=== PATIENT | female | born 1985 | race Caucasian/White ===

== ENCOUNTER 2024-08-05 18:24 | Emergency (ER) | payer OTHER, SELFPAY ==
--- NOTE | 2024-08-05 18:45 | ER ---
Nurse's Notes [facility] Name: Chen Sanchez Age: 39 yrs Sex: Female : 1985 Arrival Date: 08/05/2024 Time: 18:24 Bed IW2 Private MD: Diagnosis: Cough;Other acute sinusitis Presentation: 08/05 18:36 Chief complaint: Patient states: cough, for about 2 weeks. Mostly non-productive. No ko1 fever, no other symptoms. Coronavirus screen: At this time, the client does not indicate any symptoms associated with coronavirus-19. Ebola Screen: No symptoms or risks identified at this time. Initial Sepsis Screen: Does the patient meet any 2 criteria? No. Patient's initial sepsis screen is negative. Does the patient have a suspected source of infection? No. Patient's initial sepsis screen is negative. Risk Assessment: Do you want to hurt yourself or someone else? Patient reports no desire to harm self or others. Onset of symptoms is unknown. 18:36 Method Of Arrival: Ambulatory ko1 18:36 Acuity: JINA 4 ko1 Triage Assessment: 18:40 General: Appears in no apparent distress. Behavior is calm, cooperative, appropriate ko1 for age. Pain: Denies pain. 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 - Infectious Disease History:: Denies. - Social history:: Smoking status: Patient denies any tobacco usage or history of. Screenin:40 [facility] ED Fall Risk Assessment (Adult) History of falling in the last 3 months, ko1 including since admission No falls in past 3 months (0 pts) Confusion or Disorientation No (0 pts) Intoxicated or Sedated No (0 pts) Impaired Gait No (0 pts) Mobility Assist Device Used No (0 pt) Altered Elimination No (0 pt) Score/Fall Risk Level 0 - 2 = Low Risk Oriented to surroundings, Maintained a safe environment, Educated pt \T\ family on fall prevention, incl call for assistance when getting out of bed, Assessed \T\ reinforced patient's understanding of fall precautions, Hourly rounding (assess needs \T\ fall precautionary measures) done. Abuse screen: Denies threats or abuse. Denies injuries from another. Nutritional screening: No deficits noted. Tuberculosis screening: No symptoms or risk factors identified. Assessment: 18:40 Respiratory: Reports cough that is non-productive. ko1 Vital Signs: 18:36 BP 111 / 79; Pulse 90; Resp 16; Temp 97; Pulse Ox 100% ; ko1 18:59 BP 108 / 72; Pulse 84; Resp 16; Pulse Ox 99% ; ko1 ED Course: 18:26 Patient arrived in ED. ec2 18:26 Jaxson Nova MD is Attending Physician. ec2 18:40 Triage completed. ko1 18:40 Arm band placed on right wrist. Patient placed in waiting room, Patient notified of ko1 wait time. 18:40 Patient has correct armband on for positive identification. Provided Education on: meds.ko1 18:40 No provider procedures requiring assistance completed. Patient did not have IV access ko1 during this emergency room visit. 18:58 Wanda Montejo RN is Primary Nurse. ko1 Administered Medications: No medications were administered Medication: 18:40 VIS not applicable for this client. ko1 Outcome: 18:45 Discharge ordered by . ec2 18:59 Discharged to home ambulatory, ko1 18:59 Condition: stable 18:59 Discharge instructions given to patient, Instructed on discharge instructions, follow up and referral plans. medication usage, Demonstrated understanding of instructions, follow-up care, medications, Prescriptions given X 3, 19:00 Patient left the ED. ko1 Signatures: Wanda Montejo RN RN ko1 Jaxson Nova MD MD ec2 Corrections: (The following items were deleted from the chart) 18:40 18:40 PMHx: Seizures; ko1 ko1
--- NOTE | 2024-08-05 18:45 | EDPHYS ---
Physician Documentation [facility] Name: Chen Sanchez Age: 39 yrs Sex: Female : 1985 Arrival Date: 08/05/2024 Time: 18:24 Bed IW2 Private MD: ED Physician Jaxson Nova HPI: 08/05 18:49 This 39 yrs old Female presents to ER via Ambulatory with complaints of cough.ec2 18:49 Patient arrives today for evaluation of cough symptoms as well as drainage ongoing for ec2 2 weeks. Reports minimal improvement in symptoms. Patient reports no nausea or vomiting, no diarrhea symptoms.. 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 - Infectious Disease History:: Denies. - Social history:: Smoking status: Patient denies any tobacco usage or history of. ROS: 18:49 Constitutional: as per hpi ec2 Exam: 18:49 Constitutional: GEN: NAD Head: atraumatic Eyes: EOMI Ears: External ears are ec2 normal. CV: regular rate LUNGS: no respiratory distress, no wheezes, no rales, no focal lung deficits ABD: non-distended SKIN: no evidence of rashes MSK: no evidence of trauma Vital Signs: 18:36 BP 111 / 79; Pulse 90; Resp 16; Temp 97; Pulse Ox 100% ; ko1 18:59 BP 108 / 72; Pulse 84; Resp 16; Pulse Ox 99% ; ko1 MDM: 18:40 Medical Screening Exam initiated ec2 18:49 Data reviewed: vital signs. ED course: Patient arrives today for URI symptoms. ec2 Examination remarkable for well-appearing nontoxic hemodynamically stable individuals otherwise in no acute distress with a reassuring cardiopulmonary examination. Suspect possible viral infection, possible bacterial infection. Favor bacterial process given the duration of symptoms ongoing for 2 weeks. Will discharge home, starting antibiotics. Return precautions given . Administered Medications: No medications were administered Disposition Summary: 08/05/24 18:45 Discharge Ordered Notes: Location: Home ec2 Condition: Stable ec2 Diagnosis - Cough ec2 - Other acute sinusitis ec2 Followup: ec2 - With: Private Physician - When: - Reason: Re-evaluation by your physician Discharge Instructions: - Discharge Summary Sheet ko1 - Sinusitis, Adult ec2 Forms: - Work release form ko1 - Medication Reconciliation Form ec2 - Antibiotic Education ec2 - Prescription Opioid Use ec2 - Patient Portal Instructions ec2 - Leadership Thank You Letter ec2 Prescriptions: - Tessalon Perles 100 mg Oral Capsule - take 1 capsule ORAL route every 8 hours As needed; 15 capsule; Refills: 0, ec2 Product Selection Permitted - Zithromax Z-Anil 250 mg Oral Tablet - take 1 tablet ORAL route as directed for 5 days Day 1 - take two (2) tablets ec2 one time. Day 2, 3, 4 , 5 take one (1) tablet once daily.; 6 tablet; Refills: 0, Product Selection Permitted - Prednisone 20 mg Oral Tablet - take 2 tablets ORAL route once daily for 5 days; 10 tablet; Refills: 0, Product ec2 Selection Permitted Signatures: Wanda Montejo RN RN ko1 Jaxson Nova MD MD ec2 Corrections: (The following items were deleted from the chart) 18:40 18:40 PMHx: Seizures; ko1 ko1
[2024-08-05 19:31] VITALS: TEMP 97
[2024-08-05 19:32] VITALS: BP 108/72; O2SAT 99
== END 2024-08-05 19:00 | disposition home or self-care (01) ==
LOC: ER 18:24
DX: J01.80 Other acute sinusitis (principal)
CPT/HCPCS: 99283

== ENCOUNTER 2024-12-29 11:02 | Emergency (ER) | payer OTHER, SELFPAY ==
--- NOTE | 2024-12-29 12:08 | EDPHYS ---
Physician Documentation [facility] Name: Chen Sanchez Age: 39 yrs Sex: Female : 1985 Arrival Date: 12/29/2024 Time: 11:02 Bed IW4 Private MD: ED Physician Kennedy Browne HPI: 12/29 12:04 This 39 yrs old Female presents to ER via Ambulatory with complaints of Wound jeannette Check. 12:04 Patient presents to ED for recheck of: VULVAR. The affected area is on the pelvis. jeannette Previous treatment: UNK , [facility]. Progress: The patient reports NO ASSESSED PER PT. The patient has not experienced similar symptoms in the past. 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 - Infectious Disease History:: Denies. - Social history:: Smoking status: Patient denies any tobacco usage or history of. - Family history:: not pertinent. ROS: 12:04 Constitutional: Negative for fever, chills, and weight loss, Eyes: Negative for injury, jeannette pain, redness, and discharge, ENT: Negative for injury, pain, and discharge, Neck: Negative for injury, pain, and swelling, Cardiovascular: Negative for chest pain, palpitations, and edema, Respiratory: Negative for shortness of breath, cough, wheezing, and pleuritic chest pain, Abdomen/GI: Negative for abdominal pain, nausea, vomiting, diarrhea, and constipation, Back: Negative for injury and pain, MS/Extremity: Negative for injury and deformity, Skin: Negative for injury, rash, and discoloration, Neuro: Negative for headache, weakness, numbness, tingling, and seizure, Psych: Negative for depression, anxiety, suicide ideation, homicidal ideation, and hallucinations, Allergy/Immunology: Negative for hives, rash, and allergies, Endocrine: Negative for neck swelling, polydipsia, polyuria, polyphagia, and marked weight changes, Hematologic/Lymphatic: Negative for swollen nodes, abnormal bleeding, and unusual bruising, Exam: 12:04 Constitutional: This is a well developed, well nourished patient who is awake, alert, jeannette and in no acute distress. Head/Face: Normocephalic, atraumatic. Eyes: Pupils equal round and reactive to light, extra-ocular motions intact. Lids and lashes normal. Conjunctiva and sclera are non-icteric and not injected. Cornea within normal limits. Periorbital areas with no swelling, redness, or edema. ENT: Nares patent. No nasal discharge, no septal abnormalities noted. Tympanic membranes are normal and external auditory canals are clear. Oropharynx with no redness, swelling, or masses, exudates, or evidence of obstruction, uvula midline. Mucous membranes moist. Neck: Trachea midline, no thyromegaly or masses palpated, and no cervical lymphadenopathy. Supple, full range of motion without nuchal rigidity, or vertebral point tenderness. No Meningismus. Chest/axilla: Normal chest wall appearance and motion. Nontender with no deformity. No lesions are appreciated. Cardiovascular: Regular rate and rhythm with a normal S1 and S2. No gallops, murmurs, or rubs. Normal PMI, no JVD. No pulse deficits. Respiratory: Lungs have equal breath sounds bilaterally, clear to auscultation and percussion. No rales, rhonchi or wheezes noted. No increased work of breathing, no retractions or nasal flaring. Abdomen/GI: Soft, non-tender, with normal bowel sounds. No distension or tympany. No guarding or rebound. No evidence of tenderness throughout. Back: No spinal tenderness. No costovertebral tenderness. Full range of motion. Skin: Warm, dry with normal turgor. Normal color with no rashes, no lesions, and no evidence of cellulitis. MS/ Extremity: Pulses equal, no cyanosis. Neurovascular intact. Full, normal range of motion., bilateral aka Neuro: Awake and alert, GCS 15, oriented to person, place, time, and situation. Cranial nerves II-XII grossly intact. Motor strength 5/5 in all extremities. Sensory grossly intact. Cerebellar exam normal. Normal gait. Psych: Awake, alert, with orientation to person, place and time. Behavior, mood, and affect are within normal limits. Vital Signs: 11:51 BP 108 / 79; Pulse 93; Resp 16; Temp 98.1; Pulse Ox 99% on R/A; Weight 66.68 kg; Height iw 4 ft. 11 in. ; Pain 4/10; 11:51 Body Mass Index 29.69 (66.68 kg, 149.86 cm) iw 11:51 Pain Scale: Adult iw MDM: 11:09 Medical Screening Exam initiated jeannette 12:06 Differential diagnosis: cellulitis. Data reviewed: vital signs, nurses notes. jeannette Consideration of Admission/Observation Escalation of care including admission/observation considered. I considered the following discharge prescriptions or medication management in the emergency department Medications were administered in the Emergency Department. See MAR. Test considered but Not performed: Labs: NO LABS , NO STUDIES. Care significantly affected by the following chronic conditions: VULVAR LESION. Administered Medications: No medications were administered Disposition Summary: 12/29/24 12:07 Discharge Ordered Notes: Location: Home [facility] Problem: new jeannette Symptoms: have improved jeannette Condition: Stable jeannette Diagnosis - Disruption of wound, unspecified jeannette Followup: [facility] - With: Private Physician - When: 2 - 3 days - Reason: Recheck today's complaints, Continuance of care, Re-evaluation by your physician Discharge Instructions: - How to Change Your Wound Dressing jeannette - Wound Care, Adult [facility] - How to Change Your Wound Dressing, [id number] [facility] - Discharge Summary Sheet iw Forms: - Medication Reconciliation Form jeannette - Antibiotic Education jeannette - Prescription Opioid Use [facility] - Patient Portal Instructions [facility] - Leadership Thank You Letter [facility] - Work release form Signatures: Kennedy Browne MD MD cha Williams, Irene RN RN iw
--- NOTE | 2024-12-29 12:08 | ER ---
Nurse's Notes [facility] Name: Chen Sanchez Age: 39 yrs Sex: Female : 1985 Arrival Date: 12/29/2024 Time: 11:02 Bed IW4 Private MD: Diagnosis: Disruption of wound, unspecified Presentation: 12/29 11:51 Chief complaint: Patient states: had a biopsy on her vulva 3 weeks ago and the spot is iw still very irritated , it;s not bleeding but very irritated , she was seen at a women's clinic in [place] with [facility]. Coronavirus screen: At this time, the client does not indicate any symptoms associated with coronavirus-19. Ebola Screen: No symptoms or risks identified at this time. Initial Sepsis Screen: Does the patient meet any 2 criteria? No. Patient's initial sepsis screen is negative. Does the patient have a suspected source of infection? No. Patient's initial sepsis screen is negative. Risk Assessment: Do you want to hurt yourself or someone else? Patient reports no desire to harm self or others. Onset of symptoms was December 08, 2024. 11:51 Method Of Arrival: Ambulatory iw 11:51 Acuity: JINA 3 iw Triage Assessment: 11:53 General: Appears in no apparent distress. Behavior is calm, cooperative. Pain: iw Complains of pain in pelvis. 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 - Infectious Disease History:: Denies. - Social history:: Smoking status: Patient denies any tobacco usage or history of. - Family history:: not pertinent. Screenin:01 [facility] ED Fall Risk Assessment (Adult) History of falling in the last 3 months, iw including since admission No falls in past 3 months (0 pts) Confusion or Disorientation No (0 pts) Intoxicated or Sedated No (0 pts) Impaired Gait No (0 pts) Mobility Assist Device Used No (0 pt) Altered Elimination No (0 pt) Score/Fall Risk Level 0 - 2 = Low Risk Oriented to surroundings, Maintained a safe environment. Abuse screen: Denies threats or abuse. Nutritional screening: No deficits noted. Tuberculosis screening: No symptoms or risk factors identified. Assessment: 12:00 General: Appears in no apparent distress. Behavior is calm, cooperative. General: pt iw states she would like to follow up with her own doctors at [facility], would like a work note to show she was seen here for her job . Neuro: Level of Consciousness is awake, alert, obeys commands. Vital Signs: 11:51 BP 108 / 79; Pulse 93; Resp 16; Temp 98.1; Pulse Ox 99% on R/A; Weight 66.68 kg; Height iw 4 ft. 11 in. ; Pain 410; 11:51 Body Mass Index 29.69 (66.68 kg, 149.86 cm) iw 11:51 Pain Scale: Adult ED Course: 11:08 Patient arrived in ED. [email or web address] 11:09 Kennedy Browne MD is Attending Physician. [facility] 11:52 Triage completed. 11:53 Arm band placed on. iw 12:00 Patient has correct armband on for positive identification. iw 12:01 No provider procedures requiring assistance completed. Patient did not have IV access iw during this emergency room visit. 12:12 Muna Rees, RN is Primary Nurse. iw Administered Medications: No medications were administered Medication: 12:01 VIS not applicable for this client. iw Outcome: 12:07 Discharge ordered by . [facility] 12:11 Discharged to 12:11 Condition: good 12:11 Discharge instructions given to patient, 12:12 Patient left the ED. Signatures: Kennedy Browne MD MD cha Williams, Irene, RN RN Eulalia Alan [email or web address]
[2024-12-29 12:48] VITALS: BP 108/79; TEMP 98.1; O2SAT 99
== END 2024-12-29 12:12 | disposition home or self-care (01) ==
LOC: ER 11:02
DX: T81.30XA Disruption of wound, unspecified, initial encounter (principal)
CPT/HCPCS: 99282